=== PATIENT | female | born 1975 | race Caucasian/White ===

== ENCOUNTER 2022-07-03 21:42 | Emergency (ER) | payer SELFPAY ==
[2022-07-03 22:04] VITALS: BP 107/69; PULSE 77; RESP 20; TEMP 98.1; BMI 36.8
== END 2022-07-04 00:28 | disposition left against medical advice (07) ==
LOC: JERFT 21:42
DX: M25.562 Pain in left knee (principal)
CPT/HCPCS: 99281-25